=== PATIENT | female | born 1990 | race African-American/Black ===

== ENCOUNTER 2019-02-08 13:02 | Emergency (ER) | payer OTHER ==
[2019-02-08 13:20] VITALS: BMI 18.8
[2019-02-08 14:45] LABS: HYALINE CASTS 94 /lpf (0-8); URINE APPEARANCE CLOUDY; URINE BILIRUBIN NEGATIVE (NEGATIVE); URINE COLOR DK YELLOW; URINE GLUCOSE (UA) NEGATIVE (NEGATIVE); URINE KETONE 2+ (NEGATIVE); URINE LEUK ESTERASE TRACE (NEGATIVE); URINE NITRITE POSITIVE (NEGATIVE); URINE PROTEIN 3+ (NEGATIVE); URINE RBC 1 /hpf (0-4); URINE WBC 34 /hpf (0-5)
[2019-02-08 15:02] LABS: BASO % 0.6 % (0-2.0); EOS % 0.2 % (0-4.5); HEMATOCRIT 40.9 % (32.4-45.2); HEMOGLOBIN 13.5 GM/dL (10.7-15.3); LYMPH % 13.9 % (8-40); MCH 28.9 pg (25.7-33.7); MCHC 32.9 g/dl (32.0-36.0); MEAN CELL VOLUME 87.9 fl (80-96); MEAN PLT VOLUME 9.4 fl (7.5-11.1); MONO % 5.5 % (3.8-10.2); NEUT % 79.8 % (42.8-82.8); PLATELET COUNT 218 K/MM3 (134-434); RBC 4.66 M/mm3 (3.60-5.2); RDW 13.3 % (11.6-15.6); WHITE BLOOD COUNT 8.8 K/mm3 (4.0-10.0)
[2019-02-08 15:13] LABS: INR 1.13 (0.83-1.09); PROTHROMBIN TIME (PATIENT) 13.3 SEC (9.7-13.0)
--- NOTE | 2019-02-08 15:23 | PDOC ---
History of Present Illness - General Chief Complaint: Vaginal Bleeding Stated Complaint: VAGINAL BLEEDING 6WKS PRG Time Seen by Provider: 02/08/19 13:57 History Source: Patient Exam Limitations: No Limitations - History of Present Illness Initial Comments: 02/08/19 15:15 28 yo [id number] comes in c/o diffuse abdominal cramping for the past 2 days with mild vaginal psotting. She went to [facility] yesterday where she found out she was but did not stay for the sonogram because there was a long wait time. She states that yesterday, she had a pinkish discharge but when she woke up this am, she started having bright red discharge, hence the ED visit. No clots, she is not using pads, no burning/pain on urination but she was diagnosed with a UTI yesterday and discharged on macrobid which she has not started yet. NO other complaints today, no NVD, no vaginal discharge. LMP December 24 02/08/19 15:24 Past History - Past Medical History Allergies/Adverse Reactions: Allergies Allergy/AdvReac Type Severity Reaction Status Date / Time No Known Allergies Allergy Verified 02/08/19 13:21 COPD: No - Suicide/Smoking/Psychosocial Hx Smoking History: Never smoked Hx Alcohol Use: No Drug/Substance Use Hx: No Review of Systems - Review of Systems Able to Perform ROS?: Yes Constitutional: No: Chills, Fever, Malaise, Night Sweats HEENTM: No: Eye Pain, Recent change in vision, Throat Pain Respiratory: No: Cough, Shortness of Breath Cardiac (ROS): No: Chest Pain, Palpitations, Chest Tightness ABD/GI: Yes: Abdominal cramping. No: Diarrhea, Nausea, Vomiting : No: Dysuria, Hematuria Musculoskeletal: No: Back Pain Integumentary: No: Rash Neurological: No: Headache, Numbness, Dizziness Psychiatric: No: Change in Appetite Endocrine: No: Unexplained Weight Loss *Physical Exam - Vital Signs Last Vital Signs Temp Pulse Resp BP Pulse Ox 97.4 F L 90 16 107/62 99 02/08/19 13:18 02/08/19 13:18 02/08/19 13:18 02/08/19 13:18 02/08/19 13:18 - Physical Exam General Appearance: Yes: Nourished. No: Apparent Distress HEENT: positive: KRISTEL, Normal ENT Inspection, Normal Voice. negative: Pale Conjunctivae, Scleral Icterus (R), Scleral Icterus (L) Neck: positive: Supple. negative: Decreased range of motion, Tender midline Respiratory/Chest: positive: Lungs Clear, Normal Breath Sounds. negative: Respiratory Distress, Accessory Muscle Use Cardiovascular: positive: Regular Rhythm, Regular Rate Gastrointestinal/Abdominal: positive: Normal Bowel Sounds, Soft. negative: Tender Musculoskeletal: positive: Normal Inspection. negative: CVA Tenderness, Decreased Range of Motion Extremity: positive: Normal Capillary Refill, Normal Inspection, Normal Range of Motion. negative: Tender, Pedal Edema Integumentary: positive: Normal Color, Dry. negative: Jaundice, Rash Neurologic: positive: Fully Oriented, Alert, Normal Mood/Affect ED Treatment Course - LABORATORY CBC & Chemistry Diagram: 02/08/19 14:45 02/08/19 14:45 - ADDITIONAL ORDERS Additional order review: Laboratory Results 02/08/19 02/08/19 02/08/19 14:45 14:20 14:20 PT with INR 13.30 H INR 1.13 H Urine Color Dk yellow Urine Appearance Cloudy Urine pH 6.0 Ur Specific [place] 1.030 Urine Protein 3+ H Urine Glucose (UA) Negative Urine Ketones 2+ H Urine Blood 1+ H Urine Nitrite Positive H Urine Bilirubin Negative Urine Urobilinogen 1.0 Ur Leukocyte Esterase Trace Urine WBC (Auto) 34 Urine RBC (Auto) 1 Urine Casts (Auto) 94 U Pathogenic Cast Auto None seen U Epithel Cells (Auto) 3.0 Urine Bacteria (Auto) 8228.0 Urine HCG, Qual Positive 02/08/19 14:45 RBC 4.66 MCV 87.9 MCHC 32.9 RDW 13.3 MPV 9.4 Neutrophils % 79.8 Lymphocytes % 13.9 Monocytes % 5.5 Eosinophils % 0.2 Basophils % 0.6 - RADIOLOGY Radiology Studies Ordered: Category Date Time Status TRANSVAGINAL US PREG [US] Stat Ultrasound 02/08/19 14:24 Ordered Medical Decision Making - Medical Decision Making 02/08/19 15:24 28 yo F w/ vaginal bleeding and abdominal cramping in early . LMP December 24. Will check labs, UA, do a sono and reassess. Pt declines pain meds. 02/08/19 16:12 Change of shift, care of patient signed over to MARISSA Ignacio who will follow up sono, labs, type and screen, and decide on dispo plan. 28 yo F w/ vaginal bleeding in early , no documented IUP yet. *DC/Admit/Observation/Transfer Diagnosis at time of Disposition: Vaginal bleeding affecting early - Referrals - Patient Instructions - Post Discharge Activity
[2019-02-08 15:35] LABS: ALBUMIN 4.9 g/dl (3.4-5.0); BILIRUBIN,TOTAL 1.1 mg/dL (0.2-1); BLOOD UREA NITROGEN 12.6 mg/dL (7-18); CALCIUM 10.2 mg/dL (8.5-10.1); CREATININE 0.8 mg/dL (0.55-1.3); POTASSIUM 3.9 mmol/L (3.5-5.1); TOT PROT 8.4 g/dl (6.4-8.2)
--- NOTE | 2019-02-08 16:25 | PDOC ---
*Physical Exam - Vital Signs Last Vital Signs Temp Pulse Resp BP Pulse Ox 97.4 F L 90 16 107/62 99 02/08/19 13:18 02/08/19 13:18 02/08/19 13:18 02/08/19 13:18 02/08/19 13:18 - Physical Exam General Appearance: Yes: Nourished, Appropriately Dressed. No: Apparent Distress Neurologic: positive: Fully Oriented, Alert, Normal Mood/Affect, Normal Response ED Treatment Course - LABORATORY CBC & Chemistry Diagram: 02/08/19 14:45 02/08/19 14:45 - ADDITIONAL ORDERS Additional order review: Laboratory Results 02/08/19 02/08/19 02/08/19 14:45 14:45 14:45 PT with INR 13.30 H INR 1.13 H Sodium 140 Potassium 3.9 Chloride 106 Carbon Dioxide 27 Anion Gap 7 L BUN 12.6 Creatinine 0.8 Est GFR (CKD-EPI)AfAm 117.93 Est GFR (CKD-EPI)NonAf 101.75 Random Glucose 76 Calcium 10.2 H Total Bilirubin 1.1 H AST 13 L ALT 18 Alkaline Phosphatase 41 L Total Protein 8.4 H Albumin 4.9 Beta HCG, Quant Urine Color Urine Appearance Urine pH Ur Specific [place] Urine Protein Urine Glucose (UA) Urine Ketones Urine Blood Urine Nitrite Urine Bilirubin Urine Urobilinogen Ur Leukocyte Esterase Urine WBC (Auto) Urine RBC (Auto) Urine Casts (Auto) U Pathogenic Cast Auto U Epithel Cells (Auto) Urine Bacteria (Auto) Urine HCG, Qual Blood Type O POSITIVE Antibody Screen Negative 02/08/19 02/08/19 02/08/19 14:45 14:20 14:20 PT with INR INR Sodium Potassium Chloride Carbon Dioxide Anion Gap BUN Creatinine Est GFR (CKD-EPI)AfAm Est GFR (CKD-EPI)NonAf Random Glucose Calcium Total Bilirubin AST ALT Alkaline Phosphatase Total Protein Albumin Beta HCG, Quant 62.5 Urine Color Dk yellow Urine Appearance Cloudy Urine pH 6.0 Ur Specific [place] 1.030 Urine Protein 3+ H Urine Glucose (UA) Negative Urine Ketones 2+ H Urine Blood 1+ H Urine Nitrite Positive H Urine Bilirubin Negative Urine Urobilinogen 1.0 Ur Leukocyte Esterase Trace Urine WBC (Auto) 34 Urine RBC (Auto) 1 Urine Casts (Auto) 94 U Pathogenic Cast Auto None seen U Epithel Cells (Auto) 3.0 Urine Bacteria (Auto) 8228.0 Urine HCG, Qual Positive Blood Type Antibody Screen 02/08/19 14:45 RBC 4.66 MCV 87.9 MCHC 32.9 RDW 13.3 MPV 9.4 Neutrophils % 79.8 Lymphocytes % 13.9 Monocytes % 5.5 Eosinophils % 0.2 Basophils % 0.6 Medical Decision Making - Medical Decision Making 02/08/19 19:36 Sign out received from MARISSA Sosa at 16:00 Pt defers pelvic as she believes the one she had at [facility] yesterday caused more bleeding US does not show a Beta HcG 54 Threatened vs early Advised pt to f/u in our ED in 3 days for repeat blood and US UTI on UA. Pt has rx from [facility] that she has not picked up. Told patient to start taking the meds shiraz Pt states she also has been evaluated at [facility] for the and will probably return there on Saturday for follow up I discussed the physical exam findings, ancillary test results and final diagnoses with the patient. I answered all of the patient's questions. The patient was satisfied with the care received and felt comfortable with the discharge plan and treatment plan. The Patient agrees to follow up with the primary care physician/specialist within 24-72 hours. Return precautions were given. *DC/Admit/Observation/Transfer Diagnosis at time of Disposition: Vaginal bleeding affecting early - Discharge Dispostion Disposition: HOME Condition at time of disposition: Stable Decision to Admit order: No - Referrals Referrals: Manolo Muniz MD [Staff Physician] - - Patient Instructions Printed Discharge Instructions: DI for Threatened Additional Instructions: You were evaluated for your vaginal bleeding today Your ultrasound did not show a ; it is possible it is an early verses a miscarriage Please follow up in our ED in 2-3 days for repeat ultrasound and blood work Please pick pack worker the Macrobid as previously prescribed to you and start taking immediately Return to the ER for worsening pain, increased bleeding, vomiting, or if you have any changes in your symptoms - Post Discharge Activity
[2019-02-08 17:23] VITALS: BP 101/61; PULSE 57; TEMP 98.1
== END 2019-02-08 20:11 | disposition home or self-care (01) ==
LOC: JER 13:02
DX: O26.891 Other specified pregnancy related conditions, first trimester (principal); O20.0 Threatened abortion; Z3A.01 Less than 8 weeks gestation of pregnancy; Z87.440 Personal history of urinary (tract) infections
CPT/HCPCS: 36415; 76817-TC; 80053; 81003; 84702; 84703; 85025; 85610; 86850; 86900; 86901; 87086; 87186; 99282-25